=== PATIENT | male | born 1980 | race Caucasian/White ===

== ENCOUNTER 2024-03-09 15:51 | Emergency (ER) | payer OTHER ==
[~2024-03-09] VITALS: Ht 172.7 cm; Wt 68.0 kg
[2024-03-09] MEDS ORDERED: Ibuprofen 400 MG Tab PO ONE (16:30)
== END 2024-03-09 16:34 | disposition home or self-care (01) ==
LOC: ER 15:51
DX: N50.89 Other specified disorders of the male genital organs (principal)
CPT/HCPCS: 99283; A9270